=== PATIENT | male | born 1945 | race Caucasian/White ===

== ENCOUNTER 2018-12-15 05:05 | Inpatient (IN) ==
[2018-12-15] MEDS ORDERED: Metoprolol Tartrate 25 MG Tablet PO ONE (05:31)
[2018-12-15] MEDS ORDERED: Chlorhexidine Gluconate 2% 1 Pack (2 Cloths) TOPICAL ONE (05:31)
[2018-12-15] MEDS ORDERED: Dexamethasone Inj 20 MG/5 ML Vial IV.PUSH ONE (05:33)
[2018-12-15] MEDS ORDERED: Sodium Chlor 0.9% Inj 40 ML, Bupivacaine Liposo PF 1.3% Inj 20 ML P-ARTICULR ONE ×2 (05:35)
[2018-12-15] MEDS ORDERED: Dexamethasone PF Inj 10 MG/ML Vial ONE (05:40)
[2018-12-15] MEDS ORDERED: Chlorhexidine 4% Topical 120 APPLIC/120 ML Bottle TOPICAL SCH (05:45)
[2018-12-15] MEDS ORDERED: Sodium Chlor 0.9% Inj 500 ML IV.SIG SCH (06:00)
[2018-12-15] MEDS ORDERED: Vancomycin Inj 1,000 MG in Sodium Chlor 0.9% Inj 250 ML IV.SIG SCH (06:00)
[2018-12-15] MEDS ORDERED: TRANEXAMIC ACID IV.SIG SCH ×2 (06:00→10:00)
[2018-12-15] MEDS ORDERED: ceFAZolin 2 GM Premix Inj 2 GM/50 ML PIGGYBACK IV.SIG SCH (06:00)
[2018-12-15] MEDS ORDERED: SODIUM CHLOR 0.9% IV.SIG SCH ×2 (06:00→10:00)
[2018-12-15] MEDS ORDERED: Lidocaine PF 1% Inj 5 ML Syringe OTHER ONE (06:49)
[2018-12-15] MEDS ORDERED: Neostigmine Inj 5 MG/5 ML Syringe IV.PUSH ONE (06:49)
[2018-12-15] MEDS ORDERED: Glycopyrrolate Inj 1 MG/5 ML Syringe IV.PUSH ONE (06:49)
[2018-12-15] MEDS ORDERED: Aluminum/Magnesium/Simethacone Susp 30 ML UDC PO PRN (08:31)
[2018-12-15] MEDS ORDERED: Bisacodyl 10 MG Supp RECTAL PRN (08:31)
[2018-12-15] MEDS ORDERED: Morphine Inj 4 MG/ML Vial IV.PUSH PRN (08:31)
[2018-12-15] MEDS ORDERED: Post-op Orders (for Pharmacy) OTHER STA (08:31)
--- NOTE | 2018-12-15 08:38 | P.OP ---
- Preoperative Diagnosis (1) Osteoarthritis of left hip - Postoperative Diagnosis (1) Osteoarthritis of left hip Date of procedure: 12/15/18 Procedure: Left total hip arthroplasty Anesthesia: GETA Surgeon: Keith Frias MD [facility] Administrator: ADA Gil The surgical procedure was assisted by my Advanced Registered Nurse Practitioner. My TUMBLER DRIER OPERATOR presence was necessary throughout this case for the manipulation and positioning of the surgical extremity. My TUMBLER DRIER OPERATOR was assisting me throughout the duration of this procedure. The skill set of an Advance Registered Nurse Practitioner was medically necessary to complete this procedure. During the surgical case, the certified surgical assistant was working at the back table and the Advance Registered Nurse Practitioner was directly assisting me. Operation and Findings: IMPLANT DESCRIPTION ([place]): 1. [place] Gription Cup, acetabular size 56. 2. [place] AltrX polyethylene, neutral. 4. [place] femoral stem size 14, no collar, standard offset. 5. Femoral head/neck metal, 36, +5. ESTIMATED BLOOD LOSS: 250 cc. JUSTIFICATION FOR PROCEDURE: The patient has end-stage osteoarthritis to the hip. There is an attached conservative measures pathway form in the chart that describes the nonoperative measures that were undertaken prior to consideration of surgical management. The patient understood the risks and benefits of surgical management. See my office notes for further details. PROCEDURE: The patient was brought back to the operative theatre. Adequate anesthesia was obtained. The patient received intravenous vancomycin and Ancef. The patient was carefully placed on the operative table. The lower extremity was prepped and draped in the usual sterile fashion. Fluoroscopic images were obtained. We made a standard anterior incision over the hip. We dissected through the TFL fascia, exposing the anterior capsule. Arthrotomy was performed in a T-shaped fashion. The capsule was tagged with a #2 FiberWire. End-stage arthritis was identified. Osteotomy was performed through the femoral neck exposing the acetabulum. Remnants of the labrum were resected and osteophytes were removed. We sequentially reamed the acetabulum. We trialed the hip and placed the final cup into position. This was done under fluoroscopic guidance to obtain the appropriate inclination and anteversion. A manhole cover was placed into the acetabular component. We then placed the final polyethylene into position and confirmed that it was well seated. Capsular attachments on the calcar and the inner aspect of the greater trochanter were resected. On the proximal aspect of the femur we used a rongeur , box osteotome, canal finder, sequential broaches and lateralizing rasp. We calcar planed the proximal femur. Then thoroughly irrigated the wound. We trialed the hip with the appropriate size stem. We placed the final stem in to position and trialed again. The hip was stable while it was externally rotated 70 degrees when the leg was lowered to the floor. The final head was applied, and final fluoroscopic images were obtained. The wound was thoroughly irrigated again. Interarticular injection of liposomal bupivacaine was given. The capsule was closed with #2 FiberWire and #1 Vicryl. The deep fascia was closed with a #2 Stratafix, followed by 2-0 Vicryl in the skin and Dermabond dressing. Postop plan is to weight-bear as tolerated. DVT prophylaxis will be performed with SCDs, LAUREL hose, early mobilization, and aspirin.
[2018-12-15] MEDS ORDERED: *Meperidine Inj 25 MG/ML Vial PERIprocedural Use ONLY ONE (09:00)
[2018-12-15] MEDS ORDERED: Senna/Docusate Sodium 8.6/50 MG Tablet PO SCH (09:00)
[2018-12-15] MEDS ORDERED: Multivitamin/Minerals Therapeutic Tablet PO SCH (09:00)
[2018-12-15] MEDS: Sod Chloride 0.9% Inj 1,000 ML IV.CONT SCH (09:00)
[2018-12-15] MEDS ORDERED: fentaNYL Citrate Inj 100 MCG/2 ML Ampul ONE (09:04)
[2018-12-15] MEDS ORDERED: *morphine SULFATE 4 MG/ML PERIprocedure ONLY ONE ×3 (09:06→10:01)
--- NOTE | 2018-12-15 09:25 | XR ---
EXAM DATE: 12/15/2018 9:14 AM EST AGE/SEX: 73 years / Male INDICATIONS: Post-op left total hip arthroplasty. CLINICAL DATA: This is the patient's initial encounter. Patient reports that signs and symptoms have been present for 1 day and indicates a pain score of Nonresponsive. MEDICAL/SURGICAL HISTORY: Non-responsive. Non-responsive. COMPARISON: No prior exams available for comparison. FINDINGS: 3 views of left hip were obtained intraoperatively using the matrix camera and demonstrate that the p atient is status post left hip arthroplasty. The acetabular femoral components are intact and in norm al alignment. There is overlying soft tissue swelling and mild artifact. CONCLUSION: Expected postoperative changes status post arthroplasty. Electronically signed by: Scott Johnson MD Board Certified Radiologist 12/15/2018 9:24 AM EST
--- NOTE | 2018-12-15 09:44 | XR ---
EXAM DATE: 12/15/2018 9:38 AM EST AGE/SEX: 73 years / Male INDICATIONS: Post op left total hip. CLINICAL DATA: This is the patient's initial encounter. Patient reports that signs and symptoms have been present for 1 day and indicates a pain score of 2/10. MEDICAL/SURGICAL HISTORY: None. None. COMPARISON: No prior exams available for comparison. FINDINGS: AP and crosstable lateral views of the left hip were obtained and demonstrate the patient is status p ost arthroplasty. The femoral and acetabular components are intact and in normal alignment. There are postoperative changes with soft tissue swelling and gas. Diffuse osteopenia. CONCLUSION: Expected postoperative changes status post arthroplasty. Electronically signed by: Scott Johnson MD Board Certified Radiologist 12/15/2018 9:43 AM EST
[2018-12-15] MEDS ORDERED: HYDROmorphone PF Inj 0.5 MG/0.5 ML Syringe ONE (10:28)
[2018-12-15] MEDS: ceFAZolin Inj 1 GM in Sodium Chlor 0.9% Inj 100 ML IV.SIG SCH ×2 (16:03→22:59)
[2018-12-15] MEDS: Senna/Docusate Sodium 8.6/50 MG Tablet PO SCH (20:27)
[2018-12-15] MEDS: Multivitamin/Minerals Therapeutic Tablet PO SCH (20:28)
[2018-12-15] MEDS ORDERED: Zolpidem Tartrate 5 MG Tablet PO PRN (21:00)
[2018-12-16 05:30] LABS: Hematocrit 34.2 % (39.0-51.0); Hemoglobin 11.1 gm/dL (13.0-17.0)
[2018-12-16] MEDS: ceFAZolin Inj 1 GM in Sodium Chlor 0.9% Inj 100 ML IV.SIG SCH (05:37)
[2018-12-16] MEDS: Sod Chloride 0.9% Inj 1,000 ML IV.CONT SCH ×2 (05:50→11:58)
--- NOTE | 2018-12-16 07:20 | P.PNOP ---
Subjective Interval history: The patient is resting comfortably in bed in no acute distress. The patient reports minimal pain to the left hip. The patient is unsure whether he wants to go home today or tomorrow as he has to be able to navigate stairs at home. The patient is planning to make this decision after working with physical therapy today. Physical Exam Vital signs: Vital Signs 12/15/18 09:00 12/15/18 09:15 12/15/18 09:30 Temperature 97.8 F Pulse Rate 69 72 62 Respiratory Rate 13 15 10 L Blood Pressure 160/78 H 161/78 H 147/71 H Pulse Oximetry 97 99 99 12/15/18 10:00 12/15/18 11:00 12/15/18 12:00 Temperature Pulse Rate 62 67 67 Respiratory Rate 10 L 10 L 11 L Blood Pressure 138/67 133/66 115/58 L Pulse Oximetry 96 94 L 98 12/15/18 13:00 12/15/18 14:00 12/15/18 16:00 Temperature 98.4 F 97.4 F L Pulse Rate 79 94 H 75 Respiratory Rate 20 23 17 Blood Pressure 139/78 140/67 110/63 Pulse Oximetry 99 96 97 12/15/18 20:35 12/16/18 00:30 12/16/18 04:10 Temperature 98.0 F 98.8 F 98.5 F Pulse Rate 78 67 80 Respiratory Rate 19 18 18 Blood Pressure 123/63 118/56 L 117/62 Pulse Oximetry 96 96 97 Intake & Output 12/15/18 12/16/18 12/16/18 18:59 06:59 18:59 Intake Total 1207.2 / 1207.2 1850 / 1850 Output Total 250 / 250 400 / 400 Balance 957.2 / 957.2 1450 / 1450 Weight 72.4 kg 72.4 kg Intake: IV 1207.2 / 1207.2 1100 / 1100 NS Inj 1,000 ML @ 80 mls/hr IV. 1000 / 1000 CONT .[id number] ELIANE Rx#:[id number] LR 1000 mL Inj 1,000 ML @ 30 700 / 700 mls/hr IV.SIG .Q24H ELIANE Rx#: [id number] Cyklokapron Inj 720 MG In NS 107.2 / 107.2 Inj 100 ML @ 200 mls/hr IV.SIG ONCE ELIANE Rx#:[id number] Vancomycin Inj 1,000 MG In NS 250 / 250 Inj 250 ML @ 250 mls/hr IV.SIG BAND PRESSER ELIANE Rx#:[id number] Ancef 2 GM Premix Inj 2 gm In 50 / 50 50 ml @ 100 mls/hr IV.SIG BAND PRESSER ELIANE Rx#:[id number] Ancef Inj 1 GM In NS Inj 100 ML 100 / 100 100 / 100 @ 200 mls/hr IV.SIG Q6H ELIANE Rx #:[id number] Oral 750 / 750 Output: Urine 400 / 400 Estimated Blood Loss 250 / 250 Other: Date of Last Bowel Movement 12/14/18 # Bowel Movements 0 Narrative: The patient's dressing is clean, dry, and intact. EHL/TA/G are intact. 2+ pedal pulse. The patient's calf is soft and nontender. Sensation is intact to light touch distally. Results - Labs CBC & Chem 7: 12/16/18 04:20 Laboratory Results - last 24 hr 12/16/18 04:20 Hgb 11.1 L Hct 34.2 L - Imaging Impressions Hip X-Ray 12/15/18 00:00 CONCLUSION: Expected postoperative changes status post arthroplasty. Hip X-Ray 12/15/18 08:31 CONCLUSION: Expected postoperative changes status post arthroplasty. - Procedures Left total hip arthroplasty Assessment and Plan - Assessment and Plan POD #1: Left total hip arthroplasty 1. Weightbearing as tolerated on left lower extremity. 2. Aspirin 81 mg twice daily for DVT prophylaxis. 3. Ice as needed for swelling. 4. Stable per ortho for discharge to home with [facility]. Anticipatory discharged today or tomorrow. 5. The patient will follow up with Dr. Frias and/or ADA Cedeno as previously scheduled.
[2018-12-16] MEDS ORDERED: Dexamethasone Inj 20 MG/5 ML Vial IV.PUSH ONE (08:00)
[2018-12-16] MEDS: Multivitamin/Minerals Therapeutic Tablet PO SCH (08:30)
[2018-12-16] MEDS: Senna/Docusate Sodium 8.6/50 MG Tablet PO SCH (08:31)
[2018-12-16 12:20] VITALS: BP 120/68; PULSE 82; RESP 18; TEMP 98.3
[2018-12-16 12:22] VITALS: O2SAT 96
--- NOTE | 2018-12-17 14:02 | P.DS ---
Date of admission: 12/15/18 08:31 Primary care physician: José Manuel Alexandra Attending physician on discharge: Keith Frias Anticipated date of discharge: 12/16/18 Brief History from admission: The patient was admitted to the hospital for severe osteoarthritis of the left hip to have a left total hip arthroplasty. DS: Diagnosis - Discharge Diagnosis (1) Status post total hip replacement, left Status: Acute (2) Osteoarthritis of left hip Status: Acute DS: Summary Hospital Course: The patient was admitted to the hospital for severe osteoarthritis of the left hip to have a left total hip arthroplasty. The patient's surgery went well with no complication. The patient is on a [regular] diet. The patient's DVT prophylaxis includes use of aspirin 81 mg twice daily. The patient is weightbearing as tolerated. The patient was discharged home with [facility] and will follow up in the office with Dr. Frias and/or ADA Cedeno as previously scheduled. - Time Spent with Patient Total time spent providing and/or coordinating discharge services: Greater than 30 minutes - Quality: VTE Deep Vein Thrombosis/Pulmonary Embolism Present on Admission: No Exam Vital signs: Intake & Output 12/16/18 12/17/18 12/17/18 18:59 06:59 18:59 Other: Date of Last Bowel Movement 12/14/18 Narrative: The patient's dressing is clean, dry, and intact. EHL/TA/G are intact. 2+ pedal pulse. The patient's calf is soft and nontender. Sensation is intact to light touch distally. Results Procedures completed during hospitalization: Left total hip arthroplasty - Impressions ITS Impressions Hip X-Ray 12/15/18 08:31 CONCLUSION: Expected postoperative changes status post arthroplasty. Discharge Plan - Discharge Disposition Patient Disposition: 01 Discharge Home - Discharge Condition Condition: Stable - Discharge Order Discharge Orders: Discharge Order (Routine); Ordered 12/15/18 Ordered By: Jesse Rm - Discharge Details Anticipated Discharge Date: 12/16/18 - Physicians Team Attending Provider: Keith Frias - Rxs /Orders / Referrals /Forms Prescriptions: Continue iron 18 mg Tablet 27 mg PO DAILY multivitamin [Daily Multiple] Tablet 1 tab PO DAILY Discontinued [id number] serr [Glucosamine Daily Complex] 1,500-400-100 mg- unit-mg Tablet 1 tab PO DAILY omega 1-fvj-weg-fish oil [Fish Oil] 1,000 mg (120 mg-180 mg) Capsule 1 cap PO DAILY Ambulatory Orders / Order Sets / DME: Adjustable Commode 3-in-1 (1 each) (Routine) Location: Determined by Patient Ordered By: Jesse Rm Walker With Front Wheels (1 each) (Routine) Location: Determined by Patient Ordered By: Jesse Rm Referrals: José Manuel Alexandra [Other] - See Instructions (FOLLOW UP WITH APPOINTMENT IN ONE WEEK OF DISCHARGE) Keith Frias MD [Physician] - See Instructions (Follow-up in the office as previously scheduled with Dr. Frias or Royce Rm, ESEQUIEL ) - Discharge Instructions Patient Printed Instructions: Aspirin (By mouth), How to Choose and Use a Walker (GEN), LAUREL Hose (DC), Total Hip Replacement (DC) Additional Instructions: Full weight bearing Patient has prescriptions at home for pain meds No dressing changes Leave dressing in place Follow up with Dr Frias on 12/23/18 as scheduled at 10:10 am PO office - Post Discharge Care Plan Care Plan Goals: Discharge Care Plan Goals for Total Hip Replacement You had a hip replacement surgery. This means your natural hip was replaced with an artificial joint (prosthesis). You may be recovering at home or in a rehabilitation facility. Either way, you must take care of your new hip. Here are some goals to help you heal well. Directions to Meet your Goals: 1. Activity & Exercises: * Take pain medicine as directed by your doctor. * Dont drive until your doctor says its OK. And never drive while taking opioid pain medicine. * Wear the support stockings you were given in the hospital as directed by your surgeon. * Dont sit for more than 30 to 45 minutes at one time. * Dont lean forward while sitting. * Dont cross your legs. * Keep your feet flat on the floor. Dont turn your foot or leg inward. This stresses your hip joint. * Use an elevated toilet seat for 6 weeks after surgery. * Nap if you are tired, but dont stay in bed all day. * Sit on a firm cushion when you ride in a car and avoid sitting too low. Try not to bend your hip too much when getting in and out of the car. 2. Prevent Falls/Injury: * Follow your doctors orders regarding how much weight to put on the affected leg. * Dont bend at the hip when you bend over. Don't bend at the waist to put on socks and shoes. And avoid picking up items from the floor. * Use a cane, crutches, a walker, or handrails until your balance, flexibility, and strength improve. And remember to ask for help from others when you need it. * Free up your hands so that you can use them to keep balance. Use a neto pack , apron, or pockets to carry things. * Arrange your household to keep the items you need handy. Keep everything else out of the way. * Remove items that may cause you to fall, such as throw rugs and electrical cords. * Use nonslip bath mats, grab bars, an elevated toilet seat, and a shower chair in your bathroom * Sit on a shower stool or chair when you shower to keep from falling. 3. Precautions: * Prevent infection. Any infection will need to be treated immediately. Call your doctor right away if you think you might have an infection. * Tell your dentist that you have an artificial joint and take antibiotics as prescribed before any dental work. * Tell all your healthcare providers about your artificial joint before any medical procedure. * Maintain a healthy weight. Get help to lose any extra pounds. Added body weight puts stress on the joints. 4. Incision Care: * Prevent infection by washing your hands often. If an infection occurs, it will need to be treated right away. * Call your doctor right away if you think you may have an infection. Symptoms include a fever or an incision that leaks white, green, or yellow fluid. * Don't soak your incision in water until your doctor says its OK. This means no hot tubs, bathtubs, or swimming pools. * Follow your doctor's instructions for changing the dressing. * Dont rub the incision, or apply creams or lotions to it. * If you notice any redness or drainage around the bandage site, contact your surgeon's office immediately. 5. Follow-Up: Do Not miss your follow-up appointment. Keep up with all your appointments and yearly check ups When to call your doctor: Call your doctor right away if you have: Hip pain gets worse Pain or swelling in your calf or leg not related to your incision Tenderness or redness in your calf Fever of 100.4F (38C) or higher, or as directed by your healthcare provider Shaking chills Swelling or redness at the incision site gets worse Fluid draining from the incision Call 911: Call 911 right away if you have: Chest pain Shortness of breath Any pain or tenderness in your calf
== END 2018-12-16 14:35 | disposition home or self-care (01) | DRG 470 ==
LOC: HSDC 05:05 → EDSTATUS 07:00 → HSDI 08:31 → N06 14:40
PROVIDERS: ADMIT Orthopaedic Surgery; ATTEND Orthopaedic Surgery
DX: M16.12 Unilateral primary osteoarthritis, left hip
CPT/HCPCS: 73502; 76000; 85014; 85018; 86850; 86900; 86901; 97110; 97150; 97163; 97166; 97530; C1776; C9290; J0690; J1100; J1170; J1580; J2175; J2270; J2405; J2704; J2710; J3010; J3370; J7030; J7050; J7120